=== PATIENT | male | born 1995 | race Two or more races ===

== ENCOUNTER 2016-06-25 20:56 | Emergency (ER) | payer MEDICAID ==
[~2016-06-25] VITALS: Ht 175.3 cm; Wt 87.5 kg
[2016-06-25 22:11] VITALS: BP 132/90
== END 2016-06-26 01:17 | disposition home or self-care (01) ==
LOC: ER 22:38
DX: M54.9 Dorsalgia, unspecified (principal); J45.909 Unspecified asthma, uncomplicated; F17.200 Nicotine dependence, unspecified, uncomplicated; V43.52XA Car driver injured in collision with other type car in traffic accident, initial encounter; Y93.89 Activity, other specified; Y99.9 Unspecified external cause status; Y92.411 Interstate highway as the place of occurrence of the external cause
CPT/HCPCS: 99283